=== PATIENT | male | born 1985 | race Caucasian/White ===

== ENCOUNTER → 2017-11-26 21:44 | Outpatient (CLI) | payer MEDICAID, SELFPAY | PROVIDERS: Family Provider Family Medicine; PCP Family Medicine | DX: G47.33 Obstructive sleep apnea (adult) (pediatric) (principal) | CPT/HCPCS: 95810 ==

== ENCOUNTER → 2018-02-02 21:21 | Outpatient (CLI) | payer MEDICAID, SELFPAY | PROVIDERS: Family Provider Family Medicine; PCP Family Medicine | DX: G47.33 Obstructive sleep apnea (adult) (pediatric) (principal) | CPT/HCPCS: 95811 ==

== ENCOUNTER → 2019-08-15 20:00 | Outpatient (CLI) | payer MEDICAID, SELFPAY | PROVIDERS: Family Provider Family Medicine; PCP Family Medicine; Referring Provider Nurse Practitioner Primary Care; Visit Provider Nurse Practitioner Primary Care | DX: G47.33 Obstructive sleep apnea (adult) (pediatric) (principal) | CPT/HCPCS: 95811 ==

== ENCOUNTER → 2019-11-27 07:22 | Outpatient (CLI) | payer MEDICAID, SELFPAY ==
[2019-11-22 14:52] VITALS: BMI 24.0
--- NOTE | 2019-11-27 07:23 | US_ITS ---
STUDY: ABDOMINAL ULTRASOUND - RIGHT UPPER QUADRANT REASON FOR VISIT: Male, 34 years old ABD PAIN TECHNIQUE: Ultrasound evaluation of the right upper quadrant was performed with real-time and static sherwood-scale imaging. TECHNICAL QUALITY: Adequate. COMPARISON: None. FINDINGS: Liver: The liver measures 16.2 cm. There is increased echogenicity consistent with fatty infiltration. The bile ducts are within normal limits. There is hepatic color flow. The direction of portal flow is hepatopetal. There is no demonstrated mass lesion. Gallbladder: Normal distended gallbladder. The gallbladder wall measures 1.5 mm. There is a negative sonographic Cespedes''s sign. There is no pericholecystic fluid. There are no gallstones. Common Bile Duct (C.B.D.): The common bile duct measures 2.0 mm. Pancreas: Normal size of the head, body and tail of the pancreas. There is normal echogenicity of the pancreas. There is no demonstrated pancreatic mass or cyst. Right Kidney: Normal size of the right kidney. The right kidney measures 12.1 cm x 5.6 cm x 6 cm. Normal renal cortex. The right cortex measures 1.9 cm. There is no demonstrated renal mass or cyst. There is no right hydronephrosis. US/Abdomen Limited IMPRESSION: Fatty infiltration of the liver. Electronically Signed: Thiago Boone, at 12:43 EST , Service support ,
== END ==
LOC: US 07:23
PROVIDERS: PCP Family Medicine; Referring Provider Surgery; Visit Provider Surgery
DX: R10.9 Unspecified abdominal pain (principal)
CPT/HCPCS: 76705

== ENCOUNTER 2019-12-05 08:46 | Day surgery (SDC) | payer MEDICAID, SELFPAY ==
--- NOTE | 2019-11-22 03:30 | HP_ITS ---
Intake Vital Signs 11/22/19 BMI 24.0 11/22/19 Height 6 ft 3 in 11/22/19 Weight: 230 lb 11/22/19 BMI 28.7 11/22/19 BP 125/84 H 11/22/19 Blood Pressure Location Rt brachial 11/22/19 Position Sitting 11/22/19 Respiration 16 Intake Visit Reasons: Abdominal Pain Requirements Engineer Required: No Is patient in pain?: Yes (abdomen) Allergies No Known Allergies Allergy (Verified 11/22/19 14:50) Medications buspirone 30 mg tablet 50 mg PO BID tab 11/22/19 [History Confirmed 11/22/19] hydroxyzine HCl 25 mg tablet 50 mg PO BID PRN tab 11/22/19 [History Confirmed 11/22/19] PFS Medical History Depression (Acute) Social History (Updated 11/22/19 @ 15:30 by Catrachito Kat MD) Smoking Status: Never smoker alcohol intake: never HPI HPI HPI: YARED WATERS, is a 34 M who presents to the office today for HPI HPI Surgical H&P: Yes HPI: YARED WATERS, is a 34 M who presents to the office today for surgical consultation regarding abdominal pain change of bowel habits. Patient is referred by Dr. Osito Máruqez and a written copy of my surgical consult recommendations will return to him. 34-year-old gentleman. For several months he has been having trouble with mid abdominal pain bloating diarrhea constipation. He can awake in the morning with symptoms and the symptoms can progress throughout the day. Remotely he had some slight blood on the tissue but thinks that was due to hemorrhoids that has not persisted. These symptoms have been ongoing for several months. He states that he was diagnosed with sleep apnea several months ago. He was placed on a CPAP mask. He claims that he gained 40 to 50 pounds in weight. He thinks that he was burning calories while trying to sleep because of the sleep apnea. He has had serology looking for gluten intolerance and states that those were not remarkable. He denies family history of colon polyps or colon cancer Just over the past week he has tried some Lactaid and some probiotics without significant change. He was hoping to see gastroenterology and a referral but was placed months out in waiting. ROS General General: Yes weight change; no appetite, fatigue, colon cancer, breast cancer or weakness HEENT HEENT: No difficulty swallowing, eye injury, eye surgery, swollen glands or hoarseness Endo Endocrine: No thyroid disease, diabetes mellitus, thyroid cancer, Hair loss, heat intolerance or cold intolerance Skin Skin: No rash or changing moles Breast Breast: No left breast lump, right breast lump, nipple discharge, breast pain, abnormal mammogram, abnormal US or breast enlargement Musc Musculoskeletal: Yes back problems; no arthritis, rheumatoid arthritis, gout or joint pain Cardio Cardiovascular: No murmur, pacemaker, heart disease, atrial fibrillation, high blood pressure, heart attack, heart stent, palpitations, shortness of breat with exertion or chest pain Psych Psychiatric: Yes depression and anxiety; no hearing voices Resp Respiratory: Yes shortness of breath, Yes sleep apnea, No cough, No COPD, No asthma, No emphysema, No wheezing Gastro Gastrointestinal: Yes abdominal pain, No nausea or vomiting, Yes diarrhea, Yes constipation, No blood in stool, Yes acid reflux, Yes hemorrhoids, No ulcers, No gallbladder problem, No black,tarry stools Raza Hematologic: No blood thinners, No blood disorders, No bleeding, No anemia, No blood clots Neuro Neurologic: No system reviewed and no additional complaints, except as docu, No as per HPI, No abnormal walking, No abnormal hearing, No abnormal movements, No abnormal speech, No behavioral changes, No burning sensations, No confusion, No seizure-like activity, No unsteadiness, No dizziness, No localized weakness, No frequent falls, No headache(s), No lack of coordination, No loss of vision, No memory loss, No numbness, No other visual disturbances, No radiating pain, No restless legs, No sensory deficit, No fainting, No tingling, No tremor(s), No weakness, No other Exam Const General: cooperative, healthy appearing, comfortable, no acute distress Nutritional Appearance: overweight Orientation: alert, awake [facility] Head: normal to inspection Chest Breast Palpation: No nipple discharge Resp Effort & Inspection: normal respiratory effort Auscultation: clear to auscultation bilaterally Cardio Rate: regular rate Rhythm: regular rhythm Heart Sounds: no murmurs GI Palpation: soft, no hepatosplenomegaly Auscultation: normal bowel sounds, other (Active bowel sounds) Neuro Cognition: normal cognition Extrem General: no calf tenderness bilaterally Psych Affect: normal affect Assessment & Plan Problems 1. Generalized abdominal pain R10.84 2. Change in bowel habits R19.4 Plan 34-year-old gentleman with generalized abdominal pain change of bowel habits diarrhea alternating with constipation. Etiology not clear. Feel that I can at least initiate and assist him with some evaluations. I recommend a gallbladder ultrasound to exclude stones. I recommend a combined esophagogastroduodenoscopy with anticipated biopsies and colonoscopy with also biopsies looking for microcytic colitis. Colonoscopy would also pursue polypectomy if indicated. There is no personal or family history of colon cancer or colon polyps. He is not had a previous colonoscopy. He is aware of the technique, benefit, risk, alternatives. Pending the outcome of his evaluations may be able to assist Dr. Osito Márquez with diagnosis or the diagnosis may lean more toward irritable bowel syndrome and for that certainly GI referral would be indicated. The patient has had an opportunity to ask and have questions answered. We will schedule and proceed at his discretion. CC: Dr. Osito Kat M.D., F.A.C.S. Orders Orders: Colonoscopy Today EGD Today Gallbladder Today R10.9 Coding Level of Care Code 09182 Diagnoses Generalized abdominal pain R10.84 Change in bowel habits R19.4 11/22/19 1530 <Electronically signed by Catrachito lynch MD> Date _ Catrachito Kat MD I have re-examined the patient. There are no clinical changes since date of exam.
[2019-11-22 14:52] VITALS: BMI 24.0
[2019-12-05] VITALS (7 sets, daily range): BP systolic 100–115; BP diastolic 64–82; PULSE 55–61; RESP 14–16; TEMP 36.3–36.8; O2SAT 95–99; BMI 28.8
--- NOTE | 2019-12-05 08:53 | EKG12_ITS ---
Test Reason : PRE OP Blood Pressure : / mmHG Vent. Rate : 055 BPM Atrial Rate : 055 BPM P-R Int : 164 ms QRS Dur : 088 ms QT Int : 418 ms P-R-T Axes : 064 085 048 degrees QTc Int : 399 ms Sinus bradycardia with sinus arrhythmia Otherwise normal ECG When compared with ECG of 04-SEP-2016 13:52, No significant change was found Confirmed by IAN HALL ([id number]), material expeditor SAMREEN STEVENSON ([id number]) on 12/08/2019 9:52:16 AM Referred By: Omid Márquez Confirmed By:IAN HALL
[2019-12-05] MEDS: Lactated Ringers 1,000 ML 100 ML IV (09:35)
--- NOTE | 2019-12-05 09:45 | IMM_PTH ---
PATIENT: YARED WATERS LOC: [facility] U#:[id number] AGE/SX: 34/M ROOM: RE12/05/[address]: Dr. Catrachito Kat MD : 1985 BED: DIS: 12/05/2019 SPEC #: [id number] RECD: 12/05/19 14:06 STATUS: JACOBY REWilmer #: [id number] MARICEL: 12/05/19 09:[address]: Catrachito Kat DEPT: IMMUNOHISTOCHEMISTRY RECD BY: Chelsi Travis ENTERED: 12/05/19 14:06 SP TYPE: IMMUNO OTHR DR: Dr. Omid Márquez MD Tissues: B - Stomach, NOS Procedures: H Pylori (initial) PHYSICIAN & INSTITUTION [place] [id number] SPECIMEN INFORMATION: Tissue Source: B - Antrum biopsy Clinical Info: Abdomen pain, change in bowel habits Specimen Number: [id number] CPT code: 79985 METHODOLOGY: Deparaffinized sections of prefer/formalin-fixed tissue or PAP/DQ stained slides are incubated with monoclonal/polyclonal antibodies/oligonucleotide probes. Localization is made via biotin free immunoperoxidase method. Appropriate controls are performed and reacted as expected. Results on target cell population are indicated in the following table: RESULTS: ANTIBODY / CLONE RESULT Block B H Pylori (polyclonal) negative These tests were developed and their performance characteristics determined by [facility]. They may not have been cleared or approved by the U.S. Food and Drug Administration. The FDA has determined that such clearance or approval is not necessary. INTERPRETATION: B. Antrum biopsy: Negative for Helicobacter pylori organisms. SJ:sultana 12/07/19
--- NOTE | 2019-12-05 09:45 | EGD_PTH ---
PATIENT: YARED WATERS LOC: [facility] U#:[id number] AGE/SX: 34/M ROOM: RE12/05/[address]: Dr. Catrachito Kat MD : 1985 BED: DIS: 12/05/2019 SPEC #: [id number] RECD: 12/05/19 10:43 STATUS: JACOBY BRICE #: [id number] MARICEL: 12/05/19 09:[address]: Catrachito Kat DEPT: SURGICAL PATHOLOGY RECD BY: Leon Gamboa ENTERED: 12/05/19 13:07 SP TYPE: EGD BIOPSY OT DR: Dr. Omid Márquez MD Tissues: A - Duodenum, NOS B - Gastric mucous membrane C - Esophageal mucous membrane D - Esophageal mucous membrane E - COLON BIOPSY Procedures: Surgery Specimen Level IV HEADER OPERATION: Colonoscopy, EGD ([facility] [place]) PRE-OP DIAGNOSIS: Abdomen pain, change in bowel habits TISSUE SUBMITTED: A - Duodenum biopsy, B - Antrum biopsy for H. pylori and path, C - Distal esophagus biopsy, D - Mid esophagus biopsy, E - Random colon biopsies MICROSCOPIC DIAGNOSIS A. Duodenum, biopsy: A fragment of duodenal mucosa with mild nonspecific chronic inflammation. B. Antrum, biopsy: Minimal gastritis. See microscopic description and comment. C. Distal esophagus, biopsy: Fragments of squamous epithelium with minimal chronic inflammation. D. Mid esophagus, biopsy: Fragments of squamous epithelium, no pathologic diagnosis. E. Colon, random biopsy: Fragments of colonic mucosa, no pathologic diagnosis. SHAI:sultana 12/06/19 COMMENT B. The results of immunohistochemistry for Helicobacter pylori will be reported separately ([id number]). Correlation with clinical, endoscopic findings and appropriate follow up are necessary. MICROSCOPIC DESCRIPTION Slides are reviewed. B. The specimen shows fragments of gastric mucosa with chronic inflammatory cell infiltrates in the lamina propria consisting of lymphocytes and plasma cells, consistent with minimal chronic gastritis. GROSS DESCRIPTION A - Received in fixative is one container labeled with the patient's name and designated duodenum biopsy. The specimen consists of one irregular fragment of light hansen soft tissue that measures 0.3 x 0.3 x 0.1 cm. The specimen is totally submitted in one cassette. B - Received in fixative is one container labeled with the patient's name and designated antrum biopsy. The specimen consists of two irregular fragments of light hansen soft tissue that in aggregate measure 1 x 0.3 x 0.1 cm. The specimen is totally submitted in one cassette. C - Received in fixative is one container labeled with the patient's name and designated distal esophagus biopsy. The specimen consists of multiple irregular fragments of light hansen soft tissue that in aggregate measure 0.3 x 0.3 x 0.1 cm. The specimen is totally submitted in one cassette. D - Received in fixative is one container labeled with the patient's name and designated mid esophagus biopsy. The specimen consists of multiple irregular fragments of light hansen soft tissue that in aggregate measure 0.5 x 0.3 x 0.1 cm. The specimen is totally submitted in one cassette. E - Received in fixative is one container labeled with the patient's name and designated random colon biopsies. The specimen consists of multiple irregular fragments of light hansen soft tissue that in aggregate measure 2.5 x 0.5 x 0.1 cm. The specimen is totally submitted in one cassette. / SJ:rg 12/05/19 TC:3 CPT: 71585 x5
--- NOTE | 2019-12-05 10:15 | OP.EGD_ITS ---
Patient Name: Oscar Calvin Procedure Date: 12/05/2019 9:11 AM Date of : 1985 Age: 34 Procedure: Upper GI endoscopy Indications: Epigastric abdominal pain Providers: Catrachito Kat MD Referring MD: Omid Márquez Medicines: See the Anesthesia note for documentation of the administered medications Complications: No immediate complications. Procedure: Pre-Anesthesia Assessment: - Prior to the procedure, a History and Physical was performed, and patient medications and allergies were reviewed. The patient's tolerance of previous anesthesia was also reviewed. The risks and benefits of the procedure and the sedation options and risks were discussed with the patient. All questions were answered, and informed consent was obtained. Prior Anticoagulants: The patient has taken no previous anticoagulant or antiplatelet agents. ASA Grade Assessment: II - A patient with mild systemic disease. After reviewing the risks and benefits, the patient was deemed in satisfactory condition to undergo the procedure. After obtaining informed consent, the endoscope was passed under direct vision. Throughout the procedure, the patient's blood pressure, pulse, and oxygen saturations were monitored continuously. The gastroscope was introduced through the mouth, and advanced to the second part of duodenum. The upper GI endoscopy was accomplished without difficulty. The patient tolerated the procedure well. Scope In: 9:43:17 AM Scope Out: 9:48:04 AM Total Procedure Duration Time 0 hours 4 minutes 47 seconds Findings: A small hiatal hernia was present. The examined esophagus was normal. Biopsies were taken with a cold forceps for histology. The entire examined stomach was normal. Biopsies were taken with a cold forceps for histology. The examined duodenum was normal. Biopsies were taken with a cold forceps for histology. Impression: - Small hiatal hernia. - Normal esophagus. Biopsied distally and in the mid section - Normal stomach. Biopsied at the antrum - Normal examined duodenum. Biopsied. Recommendation: - Discharge patient to home. - Resume previous diet. - Continue present medications. - Telephone my office for pathology results in 1 week. Findings do not correlate with abdominal pain--possibly with reflux. Will await biopsies. Procedure Code(s): --- Professional --- 96105, Esophagogastroduodenoscopy, flexible, transoral; with biopsy, single or multiple Diagnosis Code(s): --- Professional --- K44.9, Diaphragmatic hernia without obstruction or gangrene R10.13, Epigastric pain CPT copyright 2017 [employer]. All rights reserved. The codes documented in this report are preliminary and upon midwife and birth center owner review may be revised to meet current compliance requirements. Catrachito Kat MD 12/05/2019 10:15:21 AM This report has been signed electronically. Number of Addenda: 0 Note Initiated On: 12/05/2019 9:11 AM
--- NOTE | 2019-12-05 10:16 | OP.CCLET_ITS ---
12/05/2019 Omid Márquez Re : Upper GI endoscopy procedure for Oscar Márquez This procedure was performed on Thursday, December 05, 2019. My impressions and recommendations are as follows: Impressions : - Small hiatal hernia. - Normal esophagus. Biopsied distally and in the mid section - Normal stomach. Biopsied at the antrum - Normal examined duodenum. Biopsied. Recommendations : - Discharge patient to home. - Resume previous diet. - Continue present medications. - Telephone my office for pathology results in 1 week. Findings do not correlate with abdominal pain--possibly with reflux. Will await biopsies. My findings are described in the full procedure note, which is enclosed. If I can be of further assistance, please feel free to contact me at Doctor phone number(s): Work: . Sincerely, Catrachito Kat MD 12/05/2019 10:15:21 AM This report has been signed electronically.
--- NOTE | 2019-12-05 10:19 | OP.CCLET_ITS ---
12/05/2019 Omid Márquez Re : Colonoscopy procedure for Oscar Márquez This procedure was performed on Thursday, December 05, 2019. My impressions and recommendations are as follows: Impressions : - The entire examined colon is normal. Biopsied. Recommendations : - Discharge patient to home. - Resume previous diet. - Continue present medications. - Repeat colonoscopy at age 52. - Telephone my office for pathology results in 1 week. Findings do not correlate with a source of abominal pain Recommend daily fiber supplementation for chronic constipation My findings are described in the full procedure note, which is enclosed. If I can be of further assistance, please feel free to contact me at Doctor phone number(s): Work: . Sincerely, Catrachito aKt MD 12/05/2019 10:18:21 AM This report has been signed electronically.
--- NOTE | 2019-12-05 10:19 | OP.COLON_ITS ---
Patient Name: Oscar Calvin Procedure Date: 12/05/2019 9:48 AM Date of : 1985 Age: 34 Procedure: Colonoscopy Indications: Generalized abdominal pain Providers: Catrachito Kat MD Referring MD: Omid Márquez Medicines: See the Anesthesia note for documentation of the administered medications Patient Profile: Last Colonoscopy: none. The patient's first colonoscopy is today. Complications: No immediate complications. Procedure: Pre-Anesthesia Assessment: - Prior to the procedure, a History and Physical was performed, and patient medications and allergies were reviewed. The patient's tolerance of previous anesthesia was also reviewed. The risks and benefits of the procedure and the sedation options and risks were discussed with the patient. All questions were answered, and informed consent was obtained. Prior Anticoagulants: The patient has taken no previous anticoagulant or antiplatelet agents. ASA Grade Assessment: II - A patient with mild systemic disease. After reviewing the risks and benefits, the patient was deemed in satisfactory condition to undergo the procedure. After I obtained informed consent, the scope was passed under direct vision. Throughout the procedure, the patient's blood pressure, pulse, and oxygen saturations were monitored continuously. The Colonoscope was introduced through the anus and advanced to the cecum, identified by appendiceal orifice and ileocecal valve. The colonoscopy was technically difficult and complex due to a tortuous colon. Successful completion of the procedure was aided by applying abdominal pressure. The patient tolerated the procedure well. The quality of the bowel preparation was good. The ileocecal valve and the appendiceal orifice were photographed. Scope In: 9:50:28 AM Scope Withdrawal Time 0 hours 6 minutes 1 second Scope Out: 10:08:23 AM Total Procedure Duration Time 0 hours 17 minutes 55 seconds Findings: The perianal and digital rectal examinations were normal. The colon (entire examined portion) appeared normal. Biopsies for histology were taken with a cold forceps from the entire colon for evaluation of microscopic colitis. Impression: - The entire examined colon is normal. Biopsied. Recommendation: - Discharge patient to home. - Resume previous diet. - Continue present medications. - Repeat colonoscopy at age 52. - Telephone my office for pathology results in 1 week. Findings do not correlate with a source of abominal pain Recommend daily fiber supplementation for chronic constipation Procedure Code(s): --- Professional --- 59729, Colonoscopy, flexible; with biopsy, single or multiple Diagnosis Code(s): --- Professional --- R10.84, Generalized abdominal pain CPT copyright 2017 [employer]. All rights reserved. The codes documented in this report are preliminary and upon revenue analyst review may be revised to meet current compliance requirements. Catrcahito Kat MD 12/05/2019 10:18:21 AM This report has been signed electronically. Number of Addenda: 0 Note Initiated On: 12/05/2019 9:48 AM
== END 2019-12-05 10:59 | disposition home or self-care (01) ==
LOC: EN 08:49 → AC 08:49
PROVIDERS: PCP Family Medicine; Referring Provider Family Medicine; Visit Provider Surgery
PROC: 0DJD8ZZ Inspection of Lower Intestinal Tract, Via Natural or Artificial Opening Endoscopic (ICD-10-PCS; CPT 45378; principal; 2019-12-05 09:40)
DX: K29.50 Unspecified chronic gastritis without bleeding (principal); K21.0 Gastro-esophageal reflux disease with esophagitis; K44.9 Diaphragmatic hernia without obstruction or gangrene; R10.84 Generalized abdominal pain; K59.00 Constipation, unspecified; R19.7 Diarrhea, unspecified; K21.9 Gastro-esophageal reflux disease without esophagitis; G47.30 Sleep apnea, unspecified; F32.9 Major depressive disorder, single episode, unspecified; F41.9 Anxiety disorder, unspecified; Z79.899 Other long term (current) drug therapy
CPT/HCPCS: 43239; 45380; 88305; 88342; 93005

== ENCOUNTER 2022-12-19 21:41 | Emergency (ER) | payer OTHER, MEDICAID, SELFPAY ==
[2022-12-19 21:42] VITALS: BP 139/97; PULSE 72; RESP 16; TEMP 36.6; O2SAT 100; BMI 29.7
[2022-12-19 23:34] VITALS: BP 118/88; PULSE 68; RESP 18; O2SAT 97
--- NOTE | 2022-12-19 23:38 | EKG12_ITS ---
Test Reason : MENTAL HEALTH Blood Pressure : / mmHG Vent. Rate : 051 BPM Atrial Rate : 051 BPM P-R Int : 148 ms QRS Dur : 086 ms QT Int : 434 ms P-R-T Axes : 022 077 038 degrees QTc Int : 400 ms Sinus bradycardia Otherwise normal ECG Confirmed by MAXINE CHAVEZ, CLIFTON ([id number]), science editor MARIEL HOLLAND ([id number]) on 12/21/2022 2:02:46 PM Referred By: ROBERT Confirmed By:CLIFTON GOODMAN MD
[2022-12-20 00:10] LABS: Absolute Lymphocyte Count 2.95 X10^3/uL (0.83-4.51); Absolute Neutrophil Count 3.4 X10^3/uL (2.0-7.7); Basophil# 0.05 X10^3/uL; Basophil% 0.7 % (0-1); Eosinophil# 0.07 X10^3/uL; Hematocrit 48.2 % (40-54); Hemoglobin 16.2 g/dL (13.0-16.5); Lymphocyte # 2.95 X10^3/ul (0.83-4.51); Lymphocyte % 41.5 % (19-41); Mean Corp Hgb Conc 33.6 g/dL (32-36); Mean Corpuscular Hgb 29.5 pg (27.0-32.0); Mean Corpuscular Volume 87.8 fL (80-94); Mean Platelet Vol. 9.4 fl (6.2-12.0); Monocyte# 0.59 X10^3/uL; Monocyte% 8.3 % (0-10); NRBC Flagged by Analyzer 0 % (0-5); Neutrophil # 3.41 X10^3/uL (2.7-7.7); Neutrophil % 48.1 % (47-70); Platelet Count 308 K/mm3 (150-450); RBC Distribution Width CV 11.9 % (11.6-14.6); RBC Distribution Width SD 38.7 fl (35.1-43.9); Red Blood Count 5.49 M/mm3 (4.6-6.2); White Blood Count 7.1 K/mm3 (4.4-11.0)
[2022-12-20 00:26] LABS: Anion Gap 7 (5-15); BUN 14 mg/dL (7-18); BUN/Creat Ratio 11.5 RATIO (10-20); Calcium,Total 9.1 mg/dL (8.5-10.1); Chloride 107 mmol/L (98-107); Creatinine, Serum 1.22 mg/dL (0.70-1.30); EST Glomerular Filtration Rate 72 mL/min (>60); Est Glom Filt Rate - Afr Amer 87 mL/min (>60); Estimated Creatinine Clearance 101.01 ml/min; Glucose 96 mg/dL (74-106); Potassium 3.7 mmol/L (3.5-5.1); Sodium Level 142 mmol/L (136-145)
[2022-12-20 00:29] LABS: Alcohol, Blood (Medical)-Serum < 3.0 mg/dL
--- NOTE | 2022-12-20 00:40 | NURSING ---
CALLED CRISIS FOR ASSESSMENT AT [id number]
[2022-12-20 00:43] LABS: Amphetamine Urine VISTA NEGATIVE (<1000 ng/mL); Barbiturate Urine VISTA NEGATIVE (< 200 ng/mL); Benzodiazepine Urine VISTA NEGATIVE (< 200 ng/mL); Cocaine Urine VISTA NEGATIVE (< 300 ng/mL); Ecstacy Urine VISTA NEGATIVE (< 500 ng/mL); Methadone Urine VISTA NEGATIVE (< 300 ng/mL); PCP Urine VISTA NEGATIVE (< 25 ng/mL); THC Urine VISTA NEGATIVE (< 50 ng/mL); Vista UDS pH Range 6
--- NOTE | 2022-12-20 01:59 | EDS_ITS ---
HPI HPI - Psych History of Present Illness Chief Complaint: Mental Health Informant: patient Narrative Narrative: Patient is a 37-year-old male with history of depression and anxiety presenting for worsening depression. Patient had downward spiral over the past few years and is battling depression. Recently is gotten very bad. He said multiple social stressors. He states he has been having issues with holding jobs. He has decreased self worth. He denies any suicidal ideations but does report passive some ideations where he feels like he be better off he just did not wake up. He states he would never do anything to actually harm himself. He follows with psychiatry as well as a therapist through [facility] in [place]. He had a recent medication change about 2 weeks ago where his Prozac was switched to escitalopram exam and he was started on Vyvanse. Family has noticed that he has had increased issues with anger and decreased patience. He had outburst of anger and throwing things but it is never been directed at anyone. Patient asked by feeling like he is getting to his breaking point and his mother and are concerned about this. Patient denies any history of suicide Nations. He states he has similar episode back in 2017 where he did what sounds like intensive outpatient and is looking to do something like that again. He is open to voluntary admission at this time. Patient denies any physical complaints. He denies any homicidal ideations. Patient reports he was recently diagnosed with strep pharyngitis and is on antibiotics for this. He denies any recent steroids. He denies any difficulty swallowing or handling his secretions. He states his symptoms are mild at this time. No reported fevers. [facility] Medical History (Updated 12/20/22 @ 02:[address] Conchis Ortiz, DO) Change in bowel habits Depression Generalized abdominal pain Home Medications L.acidoph, paracasei,B. lactis 10 billion cell capsule 1 ea PO DAILY supplement 11/30/19 [History Last Taken Unknown] buspirone 10 mg tablet 10 mg PO BID anxiety 11/30/19 [History Last Taken 12/05/19 07:00 10 MG] dicyclomine 10 mg capsule 20 mg PO ACHS 11/30/19 [History Last Taken Unknown] fluoxetine 20 mg capsule 60 mg PO DAILY depression 11/30/19 [History Last Taken Unknown] lactase 3,000 unit tablet 3,000 unit PO TID PRN Supplement Cardiology Physician Assistant 11/30/19 [History Last Taken Unknown] Allergy/AdvReac Type Severity Reaction Status Date / Time No Known Allergies Allergy Verified 12/19/22 22:15 Social History Smoking Status: Never smoker alcohol intake: never ROS ROS ED Constitutional Constitutional ED: Denies chills or fever(s) Eyes Eyes: Denies change in vision Cardiovascular Cardiovascular: Denies chest pain Respiratory/Chest Respiratory/Chest: Denies cough Gastrointestinal Gastrointestinal: Denies nausea or vomiting Musculoskeletal Musculoskeletal: Denies arthralgias or myalgias Integumentary Denies rash Neurologic Neurologic: Denies headache(s) Psychiatric Psychiatric: Reports anxiety and depression; Denies suicidal ideation or suicidal thoughts EXAM Physical Exam Const Vital Signs: 12/19/22 21:42 12/19/22 23:34 Temperature 98 F Temperature Source Temporal Pulse Rate 72 68 Respiratory Rate 16 18 Blood Pressure 139/97 H 118/88 H Blood Pressure Mean 111 98 Pulse Ox 100 97 Oxygen Delivery Method Room Air Room Air Positive well nourished and well developed General Appearance ED: well developed and NAD HEENT Reports moist mucous membranes normocephalic and atraumatic Eyes PERRL and EOMs intact bilaterally Neck supple Resp normal respiratory effort Cardio Rate: regular rate Rhythm: regular rhythm GI non-distended Extremity normal to inspection Neuro oriented x3 Sensorium / Orientation: alert Motor Exam: muscle tone normal throughout; Negative for general weakness Psych mental status grossly normal, cooperative, affect normal, speech normal, denies hallucinations, denies homicidal ideation and denies suicidal ideation Attitude: calm Activity / Motor Behavior: avoids eye contact Speech: normal speech Mood & Affect: depressed Thought Process: normal thought process Thought Content: No suicidality, No homicidality, No hallucination(s), No c ompulsion(s) and No obsession(s) Attention / Concentration: attention grossly intact and concentration grossly intact Memory / Cognition: memory grossly intact Insight: fair Judgement: fair Skin Lesions: no lesions Rashes: no rashes MDM MDM MDM Narrative Medical decision making narrative: Patient is evaluated for worsening depression. This time at most he is passive suicidal ideations but has no active plan and does not want to do anything to actually harm himself. That he would consider voluntary admission versus IOP. Patient will be medically cleared and evaluated by crisis. At this time he does not require a pink slip but I do think would benefit from increased psychiatric care. Is possible his new symptoms could be associate with his recent medication change/starting Vyvanse. Patient is evaluated by intake. Will be contracted for safety and set up for IOP program again. Patient is quite agreeable this plan of care. She is in agreement that patient does not require emergent inpatient psychiatric care. Lab Data Attestation: I reviewed the patient's lab results. Labs: Laboratory Results - last 24 hr 12/20/22 12/20/22 12/20/22 00:00 00:00 00:00 WBC 7.1 RBC 5.49 Hgb 16.2 Hct 48.2 MCV 87.8 MCH 29.5 MCHC 33.6 RDW Std Deviation 38.7 RDW Coeff of Venessa 11.9 Plt Count 308 MPV 9.4 Immature Gran % (Auto) 0.400 Neut % (Auto) 48.1 Lymph % (Auto) 41.5 H [place] % (Auto) 8.3 Eos % (Auto) 1.0 Baso % (Auto) 0.7 Absolute Neuts (auto) 3.4 Absolute Lymphs (auto) 2.95 Nucleated RBC % 0 Sodium 142 Potassium 3.7 Chloride 107 Carbon Dioxide 28.0 Anion Gap 7 BUN 14 Creatinine 1.22 Estim Creat Clear Calc 101.01 Est GFR (MDRD) Af Amer 87 Est GFR (MDRD) Non-Af 72 BUN/Creatinine Ratio 11.5 Glucose 96 Calcium 9.1 Urine Opiates Screen Urine Methadone Screen Ur Barbiturates Screen Ur Phencyclidine Scrn Ur Amphetamines Screen MDMA (Ecstasy) Screen U Benzodiazepines Scrn Urine Cocaine Screen U Cannabinoids Screen Ur Drug Screen Comment Ethyl Alcohol < 3.0 12/20/22 00:00 WBC RBC Hgb Hct MCV MCH MCHC RDW Std Deviation RDW Coeff of Venessa Plt Count MPV Immature Gran % (Auto) Neut % (Auto) Lymph % (Auto) [place] % (Auto) Eos % (Auto) Baso % (Auto) Absolute Neuts (auto) Absolute Lymphs (auto) Nucleated RBC % Sodium Potassium Chloride Carbon Dioxide Anion Gap BUN Creatinine Estim Creat Clear Calc Est GFR (MDRD) Af Amer Est GFR (MDRD) Non-Af BUN/Creatinine Ratio Glucose Calcium Urine Opiates Screen NEGATIVE Urine Methadone Screen NEGATIVE Ur Barbiturates Screen NEGATIVE Ur Phencyclidine Scrn NEGATIVE Ur Amphetamines Screen NEGATIVE MDMA (Ecstasy) Screen NEGATIVE U Benzodiazepines Scrn NEGATIVE Urine Cocaine Screen NEGATIVE U Cannabinoids Screen NEGATIVE Ur Drug Screen Comment Ethyl Alcohol Rhythm Strip Rhythm Strip: Sinus Rhythm Rate: 51 EKG Initial EKG: Attestation: I personally reviewed and interpreted this EKG as follows: Interpretation: Sinus Rhythm Comments: Sinus bradycardia rate of 51 bpm Normal axis Normal intervals Normal ST segments Discharge Plan Triage Chief Complaint: Mental Health ED Provider: Conchis Ortiz Dx/Rx/DC Orders Clinical Impression: Depression Instructions: ED Depression Prescriptions: No Action buspirone 10 MG tablet 10 mg PO BID fluoxetine 20 MG capsule 60 mg PO DAILY dicyclomine 10 MG capsule 20 mg PO ACHS lactase 3,000 UNIT tablet 3,000 unit PO TID PRN (Reason: Supplement Cardiology Physician Assistant) Sterlingacidtin good B. lactis 1 EACH capsule 1 ea PO DAILY Primary Care Provider: Omid Márquez Referrals: Omid Márquez MD [Primary Care Provider] - Activity Restrictions/Additional Instructions: You been contracted for safety. Please follow-up with the resources for tensive outpatient program and with your psychiatrist/therapist. Continue taking your medications as prescribed. Return if you have a progression or worsening of your symptoms. Disposition Disposition: Home, Self Care
== END 2022-12-20 02:56 | disposition home or self-care (01) ==
PROVIDERS: Emergency Provider Emergency Medicine; PCP Family Medicine; Visit Provider Emergency Medicine
DX: R45.851 Suicidal ideations (principal); F32.A Depression, unspecified; F41.9 Anxiety disorder, unspecified; Z60.9 Problem related to social environment, unspecified
CPT/HCPCS: 80048; 80307; 82077; 85025; 93005; 99283

== ENCOUNTER → 2025-05-01 | Outpatient (CLI) | payer MEDICAID, SELFPAY | END | disposition home or self-care (01) | LOC: SL 13:47 | PROVIDERS: PCP Family Medicine; Visit Provider Nurse Practitioner Primary Care | DX: Z46.89 Encounter for fitting and adjustment of other specified devices (principal) ==